=== PATIENT | male | born 1995 | race Two or more races ===

== ENCOUNTER 2022-04-19 20:38 | Emergency (ER) | payer BC ==
[~2022-04-19 20:38] MED LIST: Iopamidol 300 61% 100 ML VIAL FS ONE
[2022-04-19] MEDS ORDERED: Acetaminophen 500 MG TAB ONE (21:02)
[2022-04-19 21:06] LABS: #Basophils 0.1 10x3/uL (0.0-0.2); #Eosinphils 0.1 10x3/uL (0.0-0.5); #Monocytes 1.8 10x3/uL (0.0-1.1); %Basophils 0.3 % (0.0-2.0); %Eosinophils 0.3 % (0.0-6.0); %Lymphocytes 12.4 % (18.0-47.0); %Monocytes 9.8 % (0.0-10.0); %Neutrophils 76.8 % (40.0-75.0); Hemoglobin 15.3 g/dL (13.5-17.5); Mean Corpuscular HGB CONC 35.7 g/dL (32.0-36.0); Mean Corpuscular Hemoglobin 29.8 pg (27.0-33.0); Mean Corpuscular Volume 83.5 fl (81.2-95.1); Mean Platelet Volume 8.8 fl (7.4-10.4); Platelet Count 267 10x3/uL (150-450); RBC Distribution Width 12.1 % (11.5-14.5); Red Blood Cell (RBC) Count 5.14 10x6/uL (4.32-5.72); White Blood Cell (WBC) Count 18.2 10x3/uL (3.5-10.5)
[2022-04-19 21:19] LABS: ALT (SGPT) 42 U/L (8-55); AST (SGOT) 26 U/L (5-34); Albumin 4.9 g/dL (3.5-5.0); Alkaline Phosphatase 58 U/L (40-110); Anion Gap 19 mmol/L (10-20); BUN (Urea Nitrogen) 13 mg/dL (8.9-20.6); Calc. Creatinine Clearance 0 mL/min (70-130); Calcium 10.5 mg/dL (7.8-10.44); Carbon Dioxide 21 mmol/L (22-29); Chloride 101 mmol/L (98-107); Globulin 3.7 g/dL (2.4-3.5); Glucose 112 mg/dL (70-105); Potassium 3.8 mmol/L (3.5-5.1); Protein, Total 8.6 g/dL (6.0-8.3); Sodium 137 mmol/L (136-145)
[2022-04-19] MEDS ORDERED: Clindamycin/D5W 600 MG in Premix Bag 1 BAG IVPB ONE (21:45)
[2022-04-19] MEDS ORDERED: Ketorolac Tromethamine 30 MG/ML VIAL ONE (21:53)
== END 2022-04-19 22:53 | disposition home or self-care (01) ==
LOC: CSHERS 20:38
DX: L05.01 Pilonidal cyst with abscess (principal)
CPT/HCPCS: 74177; 80053; 83605; 85025; 87040; 93005; 96361; 96365; 96375; J1885; J3490; Q9967